=== PATIENT | female | born 1975 | race Caucasian/White ===

== ENCOUNTER 2017-04-29 20:14 | Inpatient (IN) | payer OTHER ==
[~2017-04-29] VITALS: Ht 170.2 cm; Wt 68.5 kg
[~2017-04-29 20:14] MED LIST: FLEXERIL10 MG PO; NAPROSYN500 MG PO; PREDNISONE10 MG PO; ULTRAM50 MG PO
[2017-04-30 01:35] LABS: APPEARANCE CLEAR/COLORLESS
[2017-04-30 01:36] LABS: RED CELL AREA COUNTED 18; WBC AREA COUNTED 18; WBC DILUTION 1; WHITE CELL COUNT 89 /MM^3 (0-5); WHITE CELL RAW COUNT 160
[2017-04-30 01:37] LABS: RED CELL COUNT 12 /MM^3 (0-1); RED CELL DILUTION 1
[2017-04-30 01:42] LABS: CSF EOSINOPHILS 0 % (0-25); MONO RAW COUNT 92; MONONUCLEAR WBC'S 92 % (50-90); POLY RAW COUNT 8; POLYNUCLEAR WBC'S 8 % (0-3)
[2017-04-30 01:53] LABS: APPEARANCE (RECHECK) CLEAR/COLORLESS; CSF TUBE NUMBER (RECHECK) TUBE #1
[2017-04-30 02:10] LABS: RED CELL AREA COUNTED 18; RED CELL COUNT (RECHECK) 119 /MM^3 (0-1); RED CELL DILUTION 1
[2017-04-30 02:25] LABS: HEMATOCRIT 39.8 % (36.0-46.0); MCH 31.7 PG (29.0-34.0); MCHC 34.9 G/DL (30.0-36.0); MCV 90.9 FL (83-99); MEAN PLAT.VOLUME 9.5 uM^3 (9.5-12.4); PLATELET COUNT 509 K/uL (156-360); RBC DIS.WIDTH-CV 12.4 % (11.8-14.6); RBC DIS.WIDTH-SD 41.3 % (39-53); RED BLOOD COUNT 4.38 M/uL (3.80-5.20); WHITE BLOOD COUNT 10.5 K/uL (4.1-10.2)
[2017-04-30 02:35] LABS: CHLORIDE 109 mEq/L (99-109); POTASSIUM 4.1 mEq/L (3.7-5.4); SODIUM 138 mEq/L (136-147)
[2017-04-30 02:37] LABS: GLUCOSE 101 mg/dL (70-99)
[2017-04-30 02:39] LABS: ANION GAP 10 MEQ/L (2-14)
[2017-04-30 02:41] LABS: GFR ESTIMATE (CALCULATED) > 59 mL/min/
[2017-04-30 02:42] LABS: UREA NITROGEN (BUN) 10 mg/dL (9-23)
[2017-04-30 05:23] VITALS: BP 112/62
[2017-04-30 07:41] VITALS: BP 110/71
[2017-04-30 07:55] LABS: HEMATOCRIT 42.1 % (36.0-46.0); MCH 31.8 PG (29.0-34.0); MCHC 34.4 G/DL (30.0-36.0); MCV 92.3 FL (83-99); MEAN PLAT.VOLUME 9.7 uM^3 (9.5-12.4); PLATELET COUNT 512 K/uL (156-360); RBC DIS.WIDTH-CV 12.4 % (11.8-14.6); RBC DIS.WIDTH-SD 42.5 % (39-53); RED BLOOD COUNT 4.56 M/uL (3.80-5.20); WHITE BLOOD COUNT 10.2 K/uL (4.1-10.2)
[2017-04-30 08:24] LABS: ANION GAP 7 MEQ/L (2-14); CHLORIDE 108 MEQ/L (99-109); GFR ESTIMATE (CALCULATED) > 59 mL/min/; GLUCOSE 110 mg/dL (70-99); POTASSIUM 4.3 MEQ/L (3.7-5.4); SAMPLE HEMOLYSIS CHECK 0; SAMPLE ICTERIC CHECK 0; SAMPLE LIPEMIA CHECK 0; SODIUM 138 MEQ/L (136-147); UREA NITROGEN (BUN) 12 mg/dL (9-23)
[2017-04-30 10:24] LABS: TREPONEMA ANTIBODY NEGATIVE (NEGATIVE)
[2017-04-30 12:01] VITALS: BP 112/72
[2017-04-30 13:50] LABS: ADD MIUA? YES; BILIRUBIN NEGATIVE; BLOOD SMALL; COLOR YELLOW ((YELLOW)); GLUCOSE (STRIP) 50; KETONES NEGATIVE; LEUKOCYTES NEGATIVE; NITRITE NEGATIVE; PROTEIN (STRIP) NEGATIVE; UROBILINOGEN 0.2 MG/DL (0.2-1.0)
[2017-04-30 13:58] LABS: BACTERIA NONE SEEN /HPF; EPITHELIAL CELLS 1+ /HPF; MUCUS TRACE /LPF; RED BLOOD CELLS 0-5 /HPF (0-5); UCUL ADDED? NO; WHITE BLOOD CELLS 0-5 /HPF (0-5)
[2017-04-30 15:28] VITALS: BP 111/72
[2017-04-30 15:52] VITALS: BP 111/72
[2017-04-30 20:02] VITALS: BP 116/69
[2017-05-01 00:12] VITALS: BP 112/63
[2017-05-01 04:17] VITALS: BP 115/75
[2017-05-01 04:20] VITALS: BP 112/65
[2017-05-01 08:03] LABS: BASOPHIL COUNT 0.1 K/uL (0-0.1); EOSINOPHIL COUNT 0.1 K/uL (0-0.3); HEMATOCRIT 37.6 % (36.0-46.0); IMMATURE GRANULOCYTE (%) 0.3 % (0.0-0.7); INSTRUMENT ABS NEUTROPHIL CT 7.3 K/uL; LYMPHOCYTE COUNT 3.3 K/uL (1.0-2.8); MCHC 33.5 G/DL (30.0-36.0); MCV 92.4 FL (83-99); MEAN PLAT.VOLUME 9.9 uM^3 (9.5-12.4); MONOCYTE COUNT 0.8 K/uL (0-0.8); NEUTROPHIL (%) 62.4 % (45-76); NEUTROPHIL COUNT 7.3 K/uL (1.8-6.4); PLATELET COUNT 468 K/uL (156-360); RBC DIS.WIDTH-CV 12.6 % (11.8-14.6); RBC DIS.WIDTH-SD 43.1 % (39-53); RED BLOOD COUNT 4.07 M/uL (3.80-5.20); WHITE BLOOD COUNT 11.6 K/uL (4.1-10.2)
[2017-05-01 08:10] VITALS: BP 108/69
[2017-05-01 08:10] LABS: PROTHROMBIN TIME 11.6 SEC (10.2-12.9)
[2017-05-01 08:23] LABS: ANION GAP 6 MEQ/L (2-14); CHLORIDE 107 MEQ/L (99-109); GFR ESTIMATE (CALCULATED) > 59 mL/min/; POTASSIUM 4.1 MEQ/L (3.7-5.4); SAMPLE HEMOLYSIS CHECK 0; SAMPLE ICTERIC CHECK 0; SAMPLE LIPEMIA CHECK 0; SODIUM 140 MEQ/L (136-147); UREA NITROGEN (BUN) 15 mg/dL (9-23)
[2017-05-01 08:24] LABS: GLUCOSE 82 mg/dL (70-99)
[2017-05-01] MEDS ORDERED: TYLENOL EXTRA500 MG PO (11:05)
[2017-05-01] MEDS ORDERED: NAPROSYN500 MG PO (11:05)
[2017-05-01 11:24] LABS: HIV INDEX 0.18; HIV-1/2 AB/AG COMBO Nonreactive
[2017-05-03 11:55] LABS: Cytomegalovirus IgM Antibody+ <30.00 AU/mL (<30.00)
== END 2017-05-01 11:05 | disposition home or self-care (01) | DRG 99 ==
LOC: EME 20:14 → EDOF 04-30 02:36 → ENRESERV 04-30 02:36 → 2EAST 04-30 05:03
PROVIDERS: Hospitalist; Physician Assistant; Student in an Organized Health Care Education/Training Program
PROC: 009U3ZX Drainage of Spinal Canal, Percutaneous Approach, Diagnostic (ICD-10-PCS; principal; 2017-04-30)
PROC: 8E0ZXY6 Isolation (ICD-10-PCS; 2017-04-30)
DX: G03.0 Nonpyogenic meningitis (principal); A87.0 Enteroviral meningitis; F17.210 Nicotine dependence, cigarettes, uncomplicated; Z90.710 Acquired absence of both cervix and uterus; Z79.52 Long term (current) use of systemic steroids; Z82.49 Family history of ischemic heart disease and other diseases of the circulatory system
CPT/HCPCS: 70450; 80048; 80048 91; 81003; 82945; 84157; 85025; 85027; 85610; 85730; 86382 90; 86617 90; 86618 90; 86644 90; 86645 90; 86658 90; 86703; 86780; 87070; 87205; 87529 90; 89051; 99281; 99285; J0696; J0780; J1100; J1644; J1885; J3370; J7030; J7120